=== PATIENT | female | born 1950 | race Caucasian/White ===

== ENCOUNTER 2020-01-08 06:25 | Day surgery (SDC) | payer MEDICARE ==
[~2020-01-08 06:25] MED LIST: Lactated Ringers 1,000 ML IV SCH
[2020-01-08] MEDS ORDERED: Midazolam 1 MG/ML 2 ML SDV ONE (07:15)
[2020-01-08] MEDS ORDERED: Ondansetron 4 MG/2 ML SDV ONE (07:15)
[2020-01-08] MEDS ORDERED: fentaNYL 100 MCG/2 ML SDV ONE (07:15)
[2020-01-08] MEDS ORDERED: Propofol 200 MG/20 ML SDV ONE (07:15)
--- NOTE | 2020-01-08 07:15 | PCM.PREANE ---
Preanesthetic Assessment - Anesthesia/Transfusion/Family Hx Anesthesia History: Prior Anesthesia Without Reaction Other Type of Anesthesia Reaction Comment: Denies any problem with prior colonoscopy Family History of Anesthesia Reaction: No Transfusion History: No Prior Transfusion(s) - Review of Systems General: No Symptoms Pulmonary: No Symptoms Cardiovascular: No Symptoms Gastrointestinal: No Symptoms Neurological: No Symptoms Other: Reports: None - Physical Assessment NPO Status Date: 01/07/20 Vital Signs: Last Vital Signs Temp 98.4 F 01/08/20 07:05 Pulse 70 01/08/20 07:05 Resp 16 01/08/20 07:05 BP 160/81 H 01/08/20 07:05 Pulse Ox 98 01/08/20 07:05 Height: 5 ft 5 in Weight: 52.163 kg ASA Class: 2 Mental Status: Alert & Oriented x3 Airway Class: Mallampati = 2 Dentition: Reports: Normal Dentition ROM/Head Extension: Full Lungs: Clear to Auscultation, Normal Respiratory Effort Cardiovascular: Regular Rate, Regular Rhythm - Allergies Allergies/Adverse Reactions: Allergies Allergy/AdvReac Type Severity Reaction Status Date / Time No Known Allergies Allergy Verified 01/08/20 07:03 - Blood Blood Available: No - Anesthesia Plan Pre-Op Medication Ordered: None - Acknowledgements Anesthesia Type Planned: General Anesthesia Pt an Appropriate Candidate for the Planned Anesthesia: Yes Alternatives and Risks of Anesthesia Discussed w Pt/Guardian: Yes Pt/Guardian Understands and Agrees with Anesthesia Plan: Yes Additional Comments: PMH: htn PLAN: GA per surgeon, LMA if lateral, ETT if prone PreAnesthesia Questionnaire HEENT History: Reports: Other (See Below) Other HEENT History: wears glasses Cardiovascular History: Reports: Hypertension Respiratory History: Reports: None Gastrointestinal History: Reports: None Genitourinary History: Reports: None Musculoskeletal History: Reports: Osteoporosis Other Musculoskeletal History: Some arthritis to hands but no problems Neurological History: Reports: None Psychiatric History: Reports: None Endocrine/Metabolic History: Reports: None Hematologic History: Reports: None Immunologic History: Reports: None Oncologic (Cancer) History: Reports: None Dermatologic History: Reports: None - Infectious Disease History Infectious Disease History: Reports: Chicken Pox - Past Surgical History Head Surgeries/Procedures: Reports: None HEENT Surgical History: Reports: None Cardiovascular Surgical History: Reports: None Respiratory Surgical History: Reports: None GI Surgical History: Reports: Colonoscopy Female Surgical History: Reports: None Neurological Surgical History: Reports: None Musculoskeletal Surgical History: Reports: None Oncologic Surgical History: Reports: None Dermatological Surgical History: Reports: None - SUBSTANCE USE Smoking Status *Q: Never Smoker Recreational Drug Use History: No - HOME MEDS Home Medications: Home Meds Cholecalciferol (Vitamin D3) [Vitamin D3] 1,000 units PO DAILY 03/05/15 [History ] amLODIPine Besylate [Amlodipine Besylate] 5 mg PO BRK 03/05/15 [History] Alendronate Sodium [Fosamax] 70 mg PO WEEKLY 01/03/20 [History] Lisinopril/Hydrochlorothiazide [Lisinopril-HCTZ 10-12.5 MG] 1 tab PO DAILY 01/04 [History] - CURRENT (IN HOUSE) MEDS Current Meds: Current Medications Lactated Ringer's (Ringers, Lactated) 1,000 mls @ 125 mls/hr IV ASDIRECTED [facility] Last Admin: 01/08/20 07:02 Dose: 125 mls/hr
[2020-01-08] MEDS ORDERED: Bupivacaine 0.5% 10 ML SDV ONE (07:28)
[2020-01-08] MEDS ORDERED: Lidocaine 1% 20 ML MDV ONE (07:28)
[2020-01-08] MEDS ORDERED: Rocuronium 100 MG/10 ML Syringe ONE (07:28)
[2020-01-08] MEDS ORDERED: Sugammadex Sodium 200 MG/2 ML VIAL ONE (07:29)
[2020-01-08] MEDS ORDERED: ePHEDrine 50 MG/ML SDV ONE (08:39)
[2020-01-08] MEDS ORDERED: Acetaminophen/HYDROcodone 325-5 MG Tab PO PRN (09:31)
--- NOTE | 2020-01-08 09:33 | PCM.OPNOTE ---
- General Post-Op/Procedure Note Date of Surgery/Procedure: 01/08/20 Operative Procedure(s): Excision 2.1 cm basal cell skin cancer of back with layered 10 cm closure. 2 mm margin. Pre Op Diagnosis: Biopsy proven basal cell skin cancer Post-Op Diagnosis: Same Anesthesia Technique: General ET Tube (ASA II) Primary Surgeon: Michael Morrissey Fluid Replacement, Intraop: 1,200 EBL in mLs: 5 Condition: Good Free Text/Narrative:: DICTATION 360365 CPT CODE 10575/42699
[2020-01-08] MEDS ORDERED: Lactated Ringers 1,000 ML IV SCH (09:45)
--- NOTE | 2020-01-08 10:27 | PCM48HPAN ---
Post Anesthesia Note - EVALUATION WITHIN 48HRS OF ANESTHETIC Vital Signs in Normal Range: Yes Patient Participated in Evaluation: Yes Respiratory Function Stable: Yes Airway Patent: Yes Cardiovascular Function Stable: Yes Hydration Status Stable: Yes Pain Control Satisfactory: Yes Nausea and Vomiting Control Satisfactory: Yes Mental Status Recovered: Yes Vital Signs: Last Vital Signs Temp 96.8 F L 01/08/20 09:27 Pulse 83 01/08/20 09:42 Resp 19 01/08/20 09:42 BP 102/78 01/08/20 09:42 Pulse Ox 100 01/08/20 09:42
--- NOTE | 2020-01-08 10:27 | PCM.POSTAN ---
POST ANESTHESIA ASSESSMENT - MENTAL STATUS Mental Status: Alert, Oriented - VITAL SIGNS Vital Signs: Last Vital Signs Temp 96.8 F L 01/08/20 09:27 Pulse 83 01/08/20 09:42 Resp 19 01/08/20 09:42 BP 102/78 01/08/20 09:42 Pulse Ox 100 01/08/20 09:42 - RESPIRATORY Respiratory Status: Respiratory Rate WNL, Airway Patent, O2 Saturation Stable - CARDIOVASCULAR CV Status: Pulse Rate WNL, Blood Pressure Stable - GASTROINTESTINAL GI Status: No Symptoms - POST OP HYDRATION Hydration Status: Adequate & Stable
[2020-01-08 12:17] VITALS: BP 119/62; PULSE 80
--- NOTE | 2020-01-09 11:04 | OR ---
SURGEON: Michael Morrissey M.D. DATE OF PROCEDURE: 01/08/2020 OPERATION PERFORMED: Excision of 2 cm basal cell skin cancer with 2 mm margins and layered 10 cm closure. PRIMARY SURGEON: Michael Morrissey MD ANESTHESIA: General endotracheal. ASA CLASSIFICATION: II. PREOPERATIVE DIAGNOSIS: Biopsy-proven basal cell skin cancer. POSTOPERATIVE DIAGNOSIS: Basal cell skin cancer with clear margins. ESTIMATED BLOOD LOSS: 5 mL. INTRAOPERATIVE FLUID REPLACEMENT: 1200 mL of crystalloid. DESCRIPTION OF PROCEDURE: The patient was taken to the operating room, was kept on the transfer cart in the supine position. Following satisfactory attainment of general endotracheal anesthesia, she was placed in the prone position on the operating table. Care was taken to pad all bony prominences and place rolls between her shoulders. The surgical site had been marked prior to the patient entering the operating room. The skin was prepped with Betadine solution. Sterile drapes were applied. Elliptical skin incision was marked out after measuring the diameter of the lesion. Skin was then infiltrated with 7 mL of 0.5% Marcaine solution. Elliptical excision was completed with a silk stitch placed at the superior margin for identification purposes. The specimen was sent to pathology. Hemostasis was obtained with the use of electrocautery. The skin was then mobilized on both sides to allow for easier closure. While waiting for the frozen section report, the wound was closed in 2 layers approximating the subcutaneous tissue with interrupted 2-0 Vicryl. The skin edges were reapproximated with interrupted 3-0 nylon. The frozen section report did reveal basal cell skin cancer with clear margins. Wound was then dressed with a sterile Tegaderm pad. Sponge, needle, and instrument counts were all correct. The patient tolerated the procedure well and was taken to recovery room in stable condition. NILAM / PEARL /[id number]
== END 2020-01-08 10:35 | disposition home or self-care (01) ==
LOC: MW.SDS 06:25
PROVIDERS: ATTEND Surgery
DX: C44.519 Basal cell carcinoma of skin of other part of trunk (principal); I10 Essential (primary) hypertension; R00.9 Unspecified abnormalities of heart beat; K64.8 Other hemorrhoids; Z79.899 Other long term (current) drug therapy; Z72.89 Other problems related to lifestyle
CPT/HCPCS: 11603; 12034; J0131; J2250; J2405; J2704; J3010; J3490; J7120; 88305; 88331; 88332; J2001

== ENCOUNTER 2024-07-08 14:06 | Inpatient (IN) | payer MEDICARE ==
[2024-07-08] MEDS ORDERED: Sodium Chloride 0.9% 10 ML Syringe FLUSH PRN (14:32)
[2024-07-08] MEDS ORDERED: Sodium Chloride 0.9% 2.5 ML Syringe FLUSH PRN (14:32)
[2024-07-08] MEDS: Lactated Ringers 1,000 ML IV SCH ×2 (14:50→18:11)
[2024-07-08 14:58] LABS: BASOPHILS ABSOLUTE AUTO 0.03 K/uL (0.00-0.20); BASOPHILS PERCENT AUTO 0.2 % (0.0-1.0); EOSINOPHILS ABSOLUTE AUTO 0.01 K/uL (0.00-0.45); EOSINOPHILS PERCENT AUTO 0.1 % (0.0-6.0); HEMATOCRIT 29.2 % (37.0-47.0); HEMOGLOBIN 10.3 g/dL (12.0-16.0); IMMATURE GRAN ABSOLUTE AUTO 0.11 K/uL (0.00-0.05); IMMATURE GRAN PERCENT AUTO 0.9 % (0.0-0.4); LYMPHOCYTES ABSOLUTE AUTO 0.28 K/uL (1.00-4.80); LYMPHOCYTES PERCENT AUTO 2.2 % (24.0-44.0); MEAN CORPUSCULAR HEMOGLOBIN 29.8 pg (28.0-32.0); MEAN CORPUSCULAR HGB CONC 35.3 g/dL (32.0-36.0); MEAN CORPUSCULAR VOLUME 84.4 fL (83.0-99.0); MEAN PLATELET VOLUME 8.7 fL (9.4-12.3); MONOCYTES PERCENT AUTO 7.8 % (0.0-8.0); NEUTROPHILS ABSOLUTE AUTO 11.42 K/uL (1.80-7.70); NEUTROPHILS PERCENT AUTO 88.8 % (41.0-71.0); PLATELET COUNT,PLT 124 K/uL (150-400); RED BLOOD CELL COUNT 3.46 M/uL (4.10-5.30); WHITE BLOOD CELL COUNT,WBC 12.85 K/uL (3.9-11.3)
[2024-07-08 15:17] LABS: C-REACTIVE PROTEIN 22.31 mg/dL (<0.3); CALCIUM 8.4 mg/dL (8.5-10.1); CARBON DIOXIDE,CO2 24.3 mmol/L (21.0-32.0); CREATININE 1.7 mg/dL (0.6-1.0); EST CRCL DRUG DOSING (CG) 22.61 mL/min; POTASSIUM,K 3.2 mmol/L (3.5-5.1)
[2024-07-08] MEDS: Iopamidol 755 MG/ML 500 ML Multipack Bottle IVPUSH STA ×2 (16:29→18:45)
[2024-07-08 17:05] LABS: APPEARANCE,URINE CLEAR; BILIRUBIN,URINE NEGATIVE (NEGATIVE); COLOR,URINE YELLOW; GLUCOSE,URINE NEGATIVE (NEGATIVE); KETONES,URINE NEGATIVE (NEGATIVE); LEUKOCYTE ESTERASE,URINE SMALL (NEGATIVE); NITRITE,URINE NEGATIVE (NEGATIVE); OCCULT BLOOD,URINE LARGE (NEGATIVE); PH,URINE 5.5 (5.0-8.0); PROTEIN,URINE TRACE mg/dL (NEGATIVE); UROBILINOGEN,URINE 0.2 EU/dL (<2.0)
[2024-07-08 17:19] LABS: BACTERIA,URINE 1+ (NEGATIVE); EPITHELIAL CELLS,URINE FEW (NONE-FEW); MUCUS,URINE LIGHT (NONE-MOD)
[2024-07-08] MEDS: cefTRIAXone 1 GM in Sodium Chloride 0.9% 50 ML IV ONE (18:08)
[2024-07-08] MEDS: Potassium Chloride 100 ML IV SCH (19:40)
[2024-07-08] MEDS ORDERED: Ondansetron 4 MG/2 ML SDV IVPUSH PRN (22:44)
[2024-07-08] MEDS: Acetaminophen 325 MG Tab PO PRN (23:34)
[2024-07-08] MEDS: Sodium Chloride 0.9% 1,000 ML IV ONE (23:38)
[2024-07-09] MEDS: Melatonin 3 MG Tab PO PRN (02:42)
[2024-07-09 04:28] LABS: BASOPHILS ABSOLUTE AUTO 0.03 K/uL (0.00-0.20); BASOPHILS PERCENT AUTO 0.3 % (0.0-1.0); HEMATOCRIT 32.2 % (37.0-47.0); HEMOGLOBIN 11.1 g/dL (12.0-16.0); IMMATURE GRAN ABSOLUTE AUTO 0.08 K/uL (0.00-0.05); IMMATURE GRAN PERCENT AUTO 0.7 % (0.0-0.4); LYMPHOCYTES ABSOLUTE AUTO 0.26 K/uL (1.00-4.80); LYMPHOCYTES PERCENT AUTO 2.4 % (24.0-44.0); MEAN CORPUSCULAR HEMOGLOBIN 29.5 pg (28.0-32.0); MEAN CORPUSCULAR HGB CONC 34.5 g/dL (32.0-36.0); MEAN CORPUSCULAR VOLUME 85.6 fL (83.0-99.0); MEAN PLATELET VOLUME 9.1 fL (9.4-12.3); MONOCYTES ABSOLUTE AUTO 0.84 K/uL (0.00-0.80); MONOCYTES PERCENT AUTO 7.7 % (0.0-8.0); NEUTROPHILS ABSOLUTE AUTO 9.73 K/uL (1.80-7.70); NEUTROPHILS PERCENT AUTO 88.9 % (41.0-71.0); PLATELET COUNT,PLT 103 K/uL (150-400); RED BLOOD CELL COUNT 3.76 M/uL (4.10-5.30); WHITE BLOOD CELL COUNT,WBC 10.94 K/uL (3.9-11.3)
[2024-07-09 04:44] LABS: CALCIUM 8.5 mg/dL (8.5-10.1); CARBON DIOXIDE,CO2 26.3 mmol/L (21.0-32.0); CREATININE 1.3 mg/dL (0.6-1.0); EST CRCL DRUG DOSING (CG) 27.15 mL/min; MAGNESIUM 2.1 mg/dL (1.8-2.4)
[2024-07-09] MEDS: Potassium Chloride 20 MEQ Tab.ER PO ONE ×2 (06:41→09:06)
[2024-07-09] MEDS: Cyclobenzaprine 5 MG Tab PO ONE (06:41)
[2024-07-09] MEDS: cefTRIAXone 1 GM in Sodium Chloride 0.9% 50 ML IV SCH ×2 (07:27→16:17)
[2024-07-09] MEDS: Rosuvastatin 10 MG Tab PO SCH (09:06)
[2024-07-09 12:34] LABS: CALCIUM 8.6 mg/dL (8.5-10.1); CARBON DIOXIDE,CO2 25.3 mmol/L (21.0-32.0); CREATININE 1.2 mg/dL (0.6-1.0); EST CRCL DRUG DOSING (CG) 29.42 mL/min
[2024-07-10 06:46] LABS: HEMOGLOBIN 10.8 g/dL (12.0-16.0); MEAN CORPUSCULAR HEMOGLOBIN 29.3 pg (28.0-32.0); MEAN CORPUSCULAR HGB CONC 33.8 g/dL (32.0-36.0); MEAN PLATELET VOLUME 9.9 fL (9.4-12.3); PLATELET COUNT,PLT 117 K/uL (150-400); RED BLOOD CELL COUNT 3.68 M/uL (4.10-5.30)
[2024-07-10 07:18] LABS: A/G RATIO 0.9 (0.9-1.6); ALBUMIN 2.8 g/dL (3.4-5.0); BILIRUBIN TOTAL 0.7 mg/dL (0.2-1.0); CALCIUM 9.1 mg/dL (8.5-10.1); CARBON DIOXIDE,CO2 23.1 mmol/L (21.0-32.0); CREATININE 1.2 mg/dL (0.6-1.0); EST CRCL DRUG DOSING (CG) 29.42 mL/min; POTASSIUM,K 3.6 mmol/L (3.5-5.1)
[2024-07-10 08:53] LABS: SEG NEUTROPHILS PERCENT MAN 81 % (41-71)
[2024-07-10 08:54] LABS: BAND ABSOLUTE MAN 0.48; BAND PERCENT MAN 4 %; LYMPHOCYTES ABSOLUTE MAN 0.48 K/uL (1.00-4.80); LYMPHOCYTES PERCENT MAN 4 % (24-44); MONOCYTES ABSOLUTE MAN 1.33 K/uL (0.00-0.80); MONOCYTES PERCENT MAN 11 % (0-8)
[2024-07-10] MEDS: VANCOmycin 1 GM in Sodium Chloride 0.9% 250 ML IV ONE (10:50)
[2024-07-10] MEDS ORDERED: Sodium Chloride 0.9% 2.5 ML Syringe FLUSH PRN (11:40)
[2024-07-10] MEDS ORDERED: Sodium Chloride 0.9% 10 ML Syringe FLUSH PRN (11:40)
[2024-07-10] MEDS: Heparin Sodium 5,000 Units/ML Vial SUBCUT SCH (11:51)
[2024-07-10] MEDS ORDERED: Ibuprofen 400 MG Tab PO PRN (17:06)
[2024-07-11 05:59] LABS: BASOPHILS ABSOLUTE AUTO 0.02 K/uL (0.00-0.20); BASOPHILS PERCENT AUTO 0.2 % (0.0-1.0); EOSINOPHILS ABSOLUTE AUTO 0.01 K/uL (0.00-0.45); EOSINOPHILS PERCENT AUTO 0.1 % (0.0-6.0); HEMATOCRIT 29.6 % (37.0-47.0); HEMOGLOBIN 10.3 g/dL (12.0-16.0); IMMATURE GRAN ABSOLUTE AUTO 0.12 K/uL (0.00-0.05); IMMATURE GRAN PERCENT AUTO 1.1 % (0.0-0.4); LYMPHOCYTES ABSOLUTE AUTO 0.93 K/uL (1.00-4.80); LYMPHOCYTES PERCENT AUTO 8.3 % (24.0-44.0); MEAN CORPUSCULAR HEMOGLOBIN 29.8 pg (28.0-32.0); MEAN CORPUSCULAR HGB CONC 34.8 g/dL (32.0-36.0); MEAN CORPUSCULAR VOLUME 85.5 fL (83.0-99.0); MEAN PLATELET VOLUME 9.6 fL (9.4-12.3); MONOCYTES ABSOLUTE AUTO 1.27 K/uL (0.00-0.80); MONOCYTES PERCENT AUTO 11.4 % (0.0-8.0); NEUTROPHILS PERCENT AUTO 78.9 % (41.0-71.0); PLATELET COUNT,PLT 134 K/uL (150-400); RED BLOOD CELL COUNT 3.46 M/uL (4.10-5.30); WHITE BLOOD CELL COUNT,WBC 11.15 K/uL (3.9-11.3)
[2024-07-11 06:23] LABS: A/G RATIO 0.7 (0.9-1.6); ALBUMIN 2.4 g/dL (3.4-5.0); BILIRUBIN TOTAL 0.5 mg/dL (0.2-1.0); CALCIUM 8.6 mg/dL (8.5-10.1); CREATININE 0.9 mg/dL (0.6-1.0); EST CRCL DRUG DOSING (CG) 39.22 mL/min; POTASSIUM,K 3.4 mmol/L (3.5-5.1); PROTEIN TOTAL,TP 5.8 g/dL (6.4-8.2)
[2024-07-11] MEDS: Potassium Chloride 20 MEQ Tab.ER PO ONE (08:49)
[2024-07-11] MEDS ORDERED: ceFAZolin 2 GM in Sodium Chloride 0.9% 50 ML IV SCH (11:15)
[2024-07-11] MEDS: ceFAZolin 2 GM in Sodium Chloride 0.9% 50 ML IV SCH (11:43)
[2024-07-11] MEDS: VANCOmycin 1.25 GM in Sodium Chloride 0.9% 250 ML IV SCH (13:41)
[2024-07-11 14:04] VITALS: BP 127/65; PULSE 95
== END 2024-07-11 16:05 | DRG 690 ==
LOC: MW.ED 14:06 → UNDOADMIN 22:03 → MW.MS 22:03 → UNDOADMIN 07-09 14:33 → MW.MS 07-09 14:33 → UNDODISIN 07-11 16:05
PROVIDERS: ADMIT Family Medicine; ATTEND Internal Medicine
DX: N30.01 Acute cystitis with hematuria (principal); N17.9 Acute kidney failure, unspecified; E87.1 Hypo-osmolality and hyponatremia; I10 Essential (primary) hypertension; E78.00 Pure hypercholesterolemia, unspecified; F15.90 Other stimulant use, unspecified, uncomplicated; L08.9 Local infection of the skin and subcutaneous tissue, unspecified; Z79.899 Other long term (current) drug therapy; Z79.02 Long term (current) use of antithrombotics/antiplatelets; Z98.890 Other specified postprocedural states
CPT/HCPCS: 36415; 71275; 71275-26; 73120-26-LT; 73120-LT; 74177; 74177-26; 80048; 80053; 80202; 81001; 83605; 83735; 83880; 84484; 84550; 85025; 86140; 87040; 87077; 87086; 87147; 87154; 87186; 87428-QW; 93005; 93306; 96361; 96365; 96366; 96367; 97162-GP; 99222; 99232; 99239; 99283; 99285-25; A9270-GY; J0690; J0696; J1644; J3480; J3490; J7030; J7050; J7120; Q9967